=== PATIENT | male | born 1940 | race Caucasian/White ===

== ENCOUNTER 2021-06-01 17:58 | Inpatient (IN) ==
[2021-06-01] MEDS ORDERED: PANTOPRAZOLE 40 MG VIAL IV STA (18:31)
[2021-06-01] MEDS ORDERED: SODIUM CHLORIDE 0.9% 1,000 ML IV STA (18:31)
[2021-06-01] MEDS ORDERED: ONDANSETRON 4 MG/2 ML VIAL IV STA (18:31)
[2021-06-01 18:51] LABS: Basophils % 0.1 % (0.0-0.8); Hematocrit 36.1 VOL% (42.0-52.0); Hemoglobin 12.3 GM/DL (14.0-18.0); Immature Granulocytes % 0.6 %; Immature Granulocytes Absolute 0.07 #; Lymphocytes % 8.7 % (21.2-54.2); Mean Corpuscular HGB Conc 34.1 GM/DL (32-36); Mean Corpuscular Volume 90.3 FL (87-102); Mean Platelet Volume 12.7 FL (9.6-12.0); Monocytes % 8.7 % (1.7-12.7); Neutrophils % 81.9 % (38.7-73.9); Platelet Count 134 T/CUMM (130-400); White Blood Count 11.8 T/CUMM (4-12)
[2021-06-01 19:04] LABS: Alanine Aminotransferase 24 U/L (16-61); Albumin 2.9 G/DL (3.4-5.0); Alkaline Phosphatase 78 U/L (45-117); Amylase 22 U/L (25-115); Aspartate Amino Transferase 22 U/L (0-37); Blood Urea Nitrogen 28 MG/DL (7-18); Calcium 8.8 MG/DL (8.5-10.1); Carbon Dioxide 21 MMOL/L (21-32); Chloride 99 MMOL/L (98-107); Estimated Glom Filtration Rate 46 ML/MIN; Glucose 141 MG/DL (74-106); Osmolality,Calculated 265.9 MOS/KG (273-304); Potassium 3.7 MMOL/L (3.5-5.1); Sodium 129 MMOL/L (136-145); Total Protein 7.4 G/DL (6.4-8.2)
[2021-06-01] MEDS ORDERED: PIPERACILLIN/TAZOBACTAM 3,375 MG in SODIUM CHLORIDE 0.9% 100 ML IV STA (19:12)
[2021-06-01] MEDS ORDERED: ENOXAPARIN 40 MG/0.4 ML SYRINGE SUBCUT STA (20:03)
[2021-06-01] MEDS ORDERED: guaiFENesin/DM ER 600-30 MG TABLET PO PRN (20:13)
[2021-06-01] MEDS ORDERED: GLUCAGON 1 MG VIAL IM PRN (20:13)
[2021-06-01] MEDS ORDERED: ONDANSETRON 4 MG/2 ML VIAL IV PRN (20:13)
[2021-06-01] MEDS ORDERED: DEXTROSE 10% 250 ML BAG IV PRN (20:32)
[2021-06-01] MEDS ORDERED: cefTRIAXone 1,000 MG in SODIUM CHLORIDE 0.9% 100 ML IV SCH (21:00)
[2021-06-01] MEDS: SODIUM CHLORIDE 0.9% 1,000 ML IV SCH (21:04)
[2021-06-01] MEDS: DOCUSATE SODIUM 100 MG CAPSULE PO SCH (21:05)
[2021-06-01] MEDS: ACETAMINOPHEN 325 MG TABLET PO PRN (21:05)
[2021-06-01] MEDS ORDERED: AZITHROMYCIN INJ 500 MG in SODIUM CHLORIDE 0.9% 250 ML IV SCH (22:00)
[2021-06-02] MEDS: ALBUTEROL/IPRATROPIUM 3 ML NEB RESP TX SCH ×5 (00:15→19:30)
[2021-06-02 03:12] LABS: Mucus,Urine Occasional /LPF (Occasional); RBC,Urine 1 /HPF (0-4); Squamous Epithelial Cell,Urine Occasional /HPF (0-10)
[2021-06-02 03:13] LABS: Bilirubin,Urine Negative (Negative); Blood, Urine Trace mg/dL (Negative); Glucose,Urine (UA) Negative (Negative); Ketones,Urine Negative (Negative); Nitrite,Urine Negative (Negative); Protein,Urine 100 mg/dL (Negative); Urine Appearance Clear (Clear); Urine Color Yellow (Yellow); Urine Urobilinogen 0.2 eU/dL (<2.0)
[2021-06-02 06:15] LABS: Basophils % 0.2 % (0.0-0.8); Hematocrit 32.9 VOL% (42.0-52.0); Hemoglobin 11.1 GM/DL (14.0-18.0); Immature Granulocytes % 0.4 %; Immature Granulocytes Absolute 0.04 #; Lymphocytes # 0.9 10*3/uL (1.4-4.0); Lymphocytes % 8.3 % (21.2-54.2); Mean Corpuscular HGB Conc 33.7 GM/DL (32-36); Mean Corpuscular Volume 93.7 FL (87-102); Mean Platelet Volume 13.8 FL (9.6-12.0); Monocytes # 0.7 10*3/uL (0.11-0.8); Monocytes % 7.2 % (1.7-12.7); Neutrophils % 83.9 % (38.7-73.9); Platelet Count 112 T/CUMM (130-400); Red Blood Count 3.51 MC/CUMM (3.8-5.5); Red Cell Distribution Width 13.3 % (9.3-17.3); White Blood Count 10.3 T/CUMM (4-12)
[2021-06-02 06:34] LABS: Calcium 8.4 MG/DL (8.5-10.1); Osmolality,Calculated 272.2 MOS/KG (273-304); Potassium 3.7 MMOL/L (3.5-5.1)
[2021-06-02] MEDS: DOCUSATE SODIUM 100 MG CAPSULE PO SCH ×2 (08:18→20:27)
[2021-06-02] MEDS: PANTOPRAZOLE 40 MG TABLET PO SCH (08:19)
[2021-06-02] MEDS: SODIUM CHLORIDE 0.9% 1,000 ML IV SCH ×2 (08:19→19:13)
[2021-06-02 08:43] LABS: Band Neutrophils 9 % (0-10); Lymphocytes 6 % (20-55); Total Cells Counted 100
[2021-06-02 08:44] LABS: Microcytosis 1+; Platelet Estimate Adequate
[2021-06-02] MEDS: ACETAMINOPHEN 325 MG TABLET PO PRN ×2 (09:22→20:27)
[2021-06-02] MEDS: PIPERACILLIN/TAZOBACTAM 3,375 MG in SODIUM CHLORIDE 0.9% 100 ML IV SCH (19:12)
[2021-06-02] MEDS: ENOXAPARIN 40 MG/0.4 ML SYRINGE SUBCUT SCH (20:27)
[2021-06-03] MEDS: PIPERACILLIN/TAZOBACTAM 3,375 MG in SODIUM CHLORIDE 0.9% 100 ML IV SCH ×3 (00:35→16:41)
[2021-06-03] MEDS: ALBUTEROL/IPRATROPIUM 3 ML NEB RESP TX SCH ×4 (01:00→19:35)
[2021-06-03] MEDS: ACETAMINOPHEN 325 MG TABLET PO PRN (03:52)
[2021-06-03] MEDS: SODIUM CHLORIDE 0.9% 1,000 ML IV SCH ×3 (06:29→21:50)
[2021-06-03] MEDS: DOCUSATE SODIUM 100 MG CAPSULE PO SCH ×2 (09:48→21:37)
[2021-06-03] MEDS: PANTOPRAZOLE 40 MG TABLET PO SCH (09:48)
[2021-06-03] MEDS: AZITHROMYCIN 250 MG TABLET PO SCH (09:48)
[2021-06-03] MEDS: ENOXAPARIN 40 MG/0.4 ML SYRINGE SUBCUT SCH (21:38)
[2021-06-04] MEDS: ALBUTEROL/IPRATROPIUM 3 ML NEB RESP TX SCH ×4 (00:40→19:00)
[2021-06-04] MEDS: PIPERACILLIN/TAZOBACTAM 3,375 MG in SODIUM CHLORIDE 0.9% 100 ML IV SCH ×3 (00:48→18:33)
[2021-06-04] MEDS: SODIUM CHLORIDE 0.9% 1,000 ML IV SCH ×3 (01:34→20:38)
[2021-06-04 06:14] LABS: Calcium 8.3 MG/DL (8.5-10.1); Osmolality,Calculated 265.5 MOS/KG (273-304); Potassium 3.5 MMOL/L (3.5-5.1)
[2021-06-04] MEDS: ASPIRIN EC 81 MG TABLET PO SCH (10:00)
[2021-06-04] MEDS: AZITHROMYCIN 250 MG TABLET PO SCH (10:00)
[2021-06-04] MEDS: PANTOPRAZOLE 40 MG TABLET PO SCH (10:00)
[2021-06-04] MEDS: DOCUSATE SODIUM 100 MG CAPSULE PO SCH ×2 (11:42→20:37)
[2021-06-05] MEDS: ALBUTEROL/IPRATROPIUM 3 ML NEB RESP TX SCH ×2 (00:40→07:14)
[2021-06-05] MEDS: PIPERACILLIN/TAZOBACTAM 3,375 MG in SODIUM CHLORIDE 0.9% 100 ML IV SCH ×2 (02:36→08:10)
[2021-06-05] MEDS: SODIUM CHLORIDE 0.9% 1,000 ML IV SCH (05:52)
[2021-06-05] MEDS: AZITHROMYCIN 250 MG TABLET PO SCH (08:09)
[2021-06-05] MEDS: ASPIRIN EC 81 MG TABLET PO SCH (08:10)
[2021-06-05] MEDS: PANTOPRAZOLE 40 MG TABLET PO SCH (08:10)
[2021-06-05] MEDS: DOCUSATE SODIUM 100 MG CAPSULE PO SCH (08:10)
[2021-06-05 08:46] VITALS: BP 135/41
[2021-06-05] MEDS ORDERED: AMOXICILLIN/CLAV 875 MG TABLET PO SCH (21:00)
== END 2021-06-05 11:08 | disposition home or self-care (01) | DRG 194 ==
LOC: N.ED 17:58 → SUATTDRO 20:14 → N.EDINP 20:14 → INTOOBSV 20:14 → N.EDINP 21:50 → N.5E 23:39
PROVIDERS: ADMIT Internal Medicine; ATTEND Family Medicine